=== PATIENT | male | born 1995 | race Caucasian/White ===

== ENCOUNTER 2022-12-18 17:52 | Emergency (ER) | payer OTHER, BC, SELFPAY | END 2022-12-18 18:08 | disposition left against medical advice (07) | PROVIDERS: Emergency Provider Internal Medicine Hematology & Oncology | DX: Z53.21 Procedure and treatment not carried out due to patient leaving prior to being seen by health care provider (principal) | CPT/HCPCS: 99199 ==

== ENCOUNTER → 2023-11-14 16:15 | Outpatient (CLI) | payer OTHER, SELFPAY ==
--- NOTE | ~2023-11-14 | MR_ITS ---
EXAMINATION: MR foot RT wo con DATE: 11/14/2023 16:50 INDICATION: Right foot sprain with pain at the right forefoot dorsal to the base of the metatarsals. TECHNIQUE: Magnetic resonance imaging (MRI) of the right fore/mid foot was performed without intraven ous contrast. Sequences included sagittal T1-weighted FSE, sagittal fluid sensitive FSE STIR, coronal PD-weighted FS FSE, coronal T1-weighted FSE, axial PD-weighted FS FSE, and axial PD-weighted FSE. COMPARISON: None FINDINGS: Bone alignment is normal. There is normal bone marrow signal throughout with no reactive edema, fract ure or pathologic marrow replacing process. 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 Remaining joint spaces appear relatively preserved. Phy siologic amount fluid in the joint spaces. The visualized portions of the flexor and extensor tendons are normal with no tenosynovitis. The Lisfranc ligament complex and the collateral ligament complex at the metatarsophalangeal and interphalangeal joints are normal. Intrinsic musculature of the teeth is normal. No abnormal masses or fluid collections identified. IMPRESSION: 1. Minimal osteoarthritis at the third and fourth tarsal metatarsal and first metatarsophalangeal kristy nts. Otherwise unremarkable right right fore and midfoot MRI. Reviewed, dictated and finalized at location A. ORM ROOM ATTENDANT IMPRESSION: 1. Minimal osteoarthritis at the third and fourth tarsal metatarsal and first m etatarsophalangeal joints. Otherwise unremarkable right right fore and midfoot MRI.
== END ==
DX: M79.671 Pain in right foot (principal)
CPT/HCPCS: 73718